=== PATIENT | male | born 2000 | race American Indian/Alaskan Native ===

== ENCOUNTER 2021-12-05 21:09 | Emergency (ER) | payer SELFPAY ==
[2021-12-05 21:31] VITALS: BP 118/82
== END 2021-12-06 04:15 | disposition left against medical advice (07) ==
LOC: ED 21:09
DX: R10.9 Unspecified abdominal pain (principal); R11.2 Nausea with vomiting, unspecified; Z53.21 Procedure and treatment not carried out due to patient leaving prior to being seen by health care provider